=== PATIENT | male | born 1975 | race Caucasian/White ===

== ENCOUNTER 2021-11-04 07:10 | Day surgery (SDC) | payer BC ==
[~2021-11-04 07:10] MED LIST: Lactated Ringers 1,000 ML IV SCH; Lidocaine 1%/Sod Bicarbonate in NS 8.4% 1 ML Syringe IDERM PRN; Midazolam 1 MG/ML 2 ML SDV ONE; Propofol 200 MG/20 ML SDV ONE; Sodium Chloride 0.9% 10 ML Syringe FLUSH PRN; Sodium Chloride 0.9% 10 ML Syringe FLUSH SCH; fentaNYL 100 MCG/2 ML SDV ONE
[2021-11-04] MEDS ORDERED: Triamcinolone Acetonide 40 MG/ML 1 ML SDV ONE (07:20)
[2021-11-04] MEDS ORDERED: Bupivacaine 0.25% 10 ML SDV ONE (07:21)
[2021-11-04] MEDS ORDERED: Lidocaine 1% 30 ML SDV ONE (07:21)
== END 2021-11-04 09:46 | disposition home or self-care (01) ==
LOC: JD.SDS 07:10
PROVIDERS: ATTEND Orthopaedic Surgery
DX: M65.331 Trigger finger, right middle finger (principal); M65.841 Other synovitis and tenosynovitis, right hand; G56.12 Other lesions of median nerve, left upper limb; G56.11 Other lesions of median nerve, right upper limb; E66.9 Obesity, unspecified; Z90.49 Acquired absence of other specified parts of digestive tract; Z98.890 Other specified postprocedural states; Z68.38 Body mass index [BMI] 38.0-38.9, adult; G47.33 Obstructive sleep apnea (adult) (pediatric); Z79.899 Other long term (current) drug therapy
CPT/HCPCS: 64721; J2250; J2704; J3010; J3301; J3490; J7120; 01810

== ENCOUNTER 2022-10-03 06:14 | Day surgery (SDC) | payer BC ==
[~2022-10-03 06:14] MED LIST changes: +Bupivacaine 0.25% 10 ML SDV ONE; +Lidocaine 1% 10 ML MDV ONE; -Lidocaine 1%/Sod Bicarbonate in NS 8.4% 1 ML Syringe IDERM PRN; -Midazolam 1 MG/ML 2 ML SDV ONE; -Propofol 200 MG/20 ML SDV ONE; -fentaNYL 100 MCG/2 ML SDV ONE
[2022-10-03] MEDS ORDERED: Midazolam 1 MG/ML 2 ML SDV ONE (06:42)
[2022-10-03] MEDS ORDERED: fentaNYL 100 MCG/2 ML SDV ONE (06:42)
[2022-10-03] MEDS ORDERED: Lidocaine 1% 6 ML ONE (06:43)
[2022-10-03] MEDS ORDERED: Propofol 200 MG/20 ML SDV ONE ×2 (06:43→07:17)
[2022-10-03] MEDS ORDERED: Acetaminophen/HYDROcodone 325-5 MG Tab PO ONE (07:47)
== END 2022-10-03 08:46 | disposition home or self-care (01) ==
LOC: JD.SDS 06:14
PROVIDERS: ATTEND Orthopaedic Surgery
DX: G56.01 Carpal tunnel syndrome, right upper limb (principal); M79.671 Pain in right foot; G47.33 Obstructive sleep apnea (adult) (pediatric); E66.01 Morbid (severe) obesity due to excess calories; Z79.1 Long term (current) use of non-steroidal anti-inflammatories (NSAID); Z68.38 Body mass index [BMI] 38.0-38.9, adult; G89.29 Other chronic pain
CPT/HCPCS: 64721; J2250; J2704; J3010; J3490; J7120; 01810

== ENCOUNTER 2022-11-10 07:59 | Day surgery (SDC) | payer BC ==
[~2022-11-10 07:59] MED LIST changes: -Bupivacaine 0.25% 10 ML SDV ONE; -Lidocaine 1% 10 ML MDV ONE
[2022-11-10] MEDS ORDERED: fentaNYL 100 MCG/2 ML SDV IVPUSH PRN ×2 (08:06→10:24)
[2022-11-10] MEDS ORDERED: Ondansetron 4 MG/2 ML SDV IVPUSH PRN ×2 (08:06→10:24)
[2022-11-10] MEDS ORDERED: Lidocaine 1% 10 ML MDV ONE (09:09)
[2022-11-10] MEDS ORDERED: Bupivacaine 0.25% 10 ML SDV ONE (09:10)
[2022-11-10] MEDS ORDERED: Lidocaine 1% 5 ML VIAL ONE (09:17)
[2022-11-10] MEDS ORDERED: Propofol 200 MG/20 ML SDV ONE (09:17)
[2022-11-10] MEDS ORDERED: fentaNYL 100 MCG/2 ML SDV ONE (09:17)
[2022-11-10] MEDS ORDERED: Midazolam 1 MG/ML 2 ML SDV ONE (09:17)
[2022-11-10] MEDS ORDERED: Lactated Ringers 1,000 ML ONE (10:35)
[2022-11-10] MEDS ORDERED: Ketorolac 30 MG/ML SDV ONE (10:47)
== END 2022-11-10 12:00 | disposition home or self-care (01) ==
LOC: JD.SDS 07:59
PROVIDERS: ATTEND Orthopaedic Surgery
DX: G56.02 Carpal tunnel syndrome, left upper limb (principal); G47.33 Obstructive sleep apnea (adult) (pediatric); E66.01 Morbid (severe) obesity due to excess calories; Z79.1 Long term (current) use of non-steroidal anti-inflammatories (NSAID); Z68.38 Body mass index [BMI] 38.0-38.9, adult
CPT/HCPCS: 64721; J1885; J2250; J2704; J3010; J3490; J7120; 01810